=== PATIENT | male | born 1945 | race Caucasian/White ===

== ENCOUNTER 2023-06-20 18:25 | Emergency (ER) | payer MEDICARE ==
[2023-06-20 19:44] LABS: #Eosinphils 0.4 10x3/uL (0.0-0.5); #Monocytes 0.7 10x3/uL (0.0-1.1); #Neutrophils 6.4 10x3/uL (1.5-8.4); %Basophils 0.4 % (0.0-2.0); %Eosinophils 3.6 % (0.0-6.0); %Lymphocytes 21.4 % (18.0-47.0); %Monocytes 7.4 % (0.0-10.0); %Neutrophils 66.7 % (40.0-75.0); Hematocrit 35.6 % (38.8-50.0); Hemoglobin 11.7 g/dL (13.5-17.5); Mean Corpuscular HGB CONC 32.9 g/dL (32.0-36.0); Mean Corpuscular Hemoglobin 30.2 pg (27.0-33.0); Mean Corpuscular Volume 91.8 fl (81.2-95.1); Mean Platelet Volume 9.3 fl (7.4-10.4); Platelet Count 294 10x3/uL (150-450); RBC Distribution Width 13.1 % (11.5-14.5); Red Blood Cell (RBC) Count 3.88 10x6/uL (4.32-5.72); White Blood Cell (WBC) Count 9.7 10x3/uL (3.5-10.5)
[2023-06-20 19:57] LABS: ALT (SGPT) 22 U/L (8-55); AST (SGOT) 18 U/L (5-34); Albumin 3.8 g/dL (3.4-4.8); Alkaline Phosphatase 40 U/L (40-110); Anion Gap 14 mmol/L (10-20); BUN (Urea Nitrogen) 29 mg/dL (8.4-25.7); Bilirubin, Total 0.4 mg/dL (0.2-1.2); Calc. Creatinine Clearance 0 mL/min (70-130); Calcium 8.7 mg/dL (7.8-10.44); Carbon Dioxide 23 mmol/L (23-31); Chloride 106 mmol/L (98-107); Estimated GFR 32; Globulin 2.7 g/dL (2.4-3.5); Glucose 159 mg/dL (83-110); Protein, Total 6.5 g/dL (5.8-8.1); Sodium 139 mmol/L (136-145)
[2023-06-20 20:00] LABS: Troponin I Less than 0.010 ng/mL (< 0.028)
== END 2023-06-20 22:15 | disposition home or self-care (01) ==
LOC: CSHERS 18:25
DX: R06.02 Shortness of breath (principal); R79.89 Other specified abnormal findings of blood chemistry; R60.0 Localized edema; I10 Essential (primary) hypertension; F17.210 Nicotine dependence, cigarettes, uncomplicated
CPT/HCPCS: 36415; 71045; 80053; 83880; 84484; 85025; 85379; 93005; 93010

== ENCOUNTER 2023-07-15 12:54 | Outpatient (CLI) | payer MEDICARE ==
[2023-07-15 14:14] LABS: ALV-art Gradient 23.405 mmHg (0-20); Actual Bicarbonate (HCO3a) 21.8 mEq/L (22-28); Analyzer IN Cardio CS ER; Base Excess (BEa) -2.6 mEq/L (-2.0 to +3.0); CO2 Tension 36.9 mmHg (35.0-45.0); Carboxyhemoglobin (COHb) 1.3 gm% (0.0-3.0); Hematocrit-ABG 40 % (42.0-52.0); Hemoglobin (Hb) 13.6 g/dL (14.0-18.0); O2 Tension (PaO2), arterial 80.2 mmHg (> 60.0); Potassium - ABG Lab 3.96 mmol/L (3.70-5.30); Puncture Site RRA
== END 2023-07-15 12:55 | disposition home or self-care (01) ==
LOC: CSHCP 12:54
PROVIDERS: ATTEND Internal Medicine Critical Care Medicine
DX: J44.9 Chronic obstructive pulmonary disease, unspecified (principal); R94.2 Abnormal results of pulmonary function studies
CPT/HCPCS: 36600; 82805; 94060; 94618; 94664; 94726; 94729

== ENCOUNTER 2024-05-31 09:26 | Outpatient (CLI) | payer MEDICARE | END 2024-05-31 09:27 | disposition home or self-care (01) | LOC: CSHCP 09:26 | PROVIDERS: ATTEND Internal Medicine | DX: C34.32 Malignant neoplasm of lower lobe, left bronchus or lung (principal) | CPT/HCPCS: 94010; 94726; 94729; 94760 ==